=== PATIENT | female | born 1985 | race Caucasian/White ===

== ENCOUNTER 2017-01-24 09:01 | Inpatient (IN) | payer MEDICAID ==
[~2017-01-24] VITALS: Ht 160 cm; Wt 78.5 kg
[2017-01-24 10:09] LABS: Basophils # (auto) 0.1 uL; Basophils % (auto) 0.5 % (0.0-2.0); DEFINITIVE VIEW TRANSMISSION; Eosinophils # (auto) 0.1 uL; Eosinophils % (auto) 0.9 % (0.0-7.0); Hematocrit 38.8 % (36.0-46.0); Hemoglobin 12.4 g/dL (12.2-16.2); Lymphocytes # (auto) 2.2 uL; Lymphocytes % (auto) 21.2 % (10.0-50.0); Mean Corpuscular Hemoglobin 22.5 pg (28.0-32.0); Mean Corpuscular Volume 70.2 fL (80.0-100.0); Mean Platelet Volume 8.3 fL (7.4-10.4); Monocytes # (auto) 0.6 uL; Monocytes % (auto) 5.8 % (0.0-12.0); Neutrophils # (auto) 7.4 uL; Neutrophils % (auto) 71.6 % (37.0-80.0); Platelet Count (auto) 325 10^3/uL (140-450); Red Cell Distribution Width 15.4 % (11.6-16.0); White Blood Cell 10.4 10^3/uL (4.4-10.8)
[2017-01-24 10:26] LABS: Albumin 3.7 g/dL (3.4-5.0); BUN/Creatinine Ratio 13.8; Calcium 8.5 mg/dL (8.5-10.1); Potassium 3.9 mmol/L (3.5-5.1)
[2017-01-24] MEDS ORDERED: MORPHINE SULFATE 4 MG/ML SYRG IM ONE (11:15)
[2017-01-24] MEDS ORDERED: ONDANSETRON HCL 4 MG/2 ML VIAL IV ONE (11:15)
[2017-01-24] MEDS ORDERED: LABETALOL HCL 5 MG/ML 4ML SYRINGE IV ONE (11:15)
[2017-01-24] MEDS ORDERED: MORPHINE SULFATE 4 MG/ML SYRG IV ONE (11:30)
[2017-01-24 11:39] LABS: B-Type Natriuretic Peptide 959.61 pg/mL (0-100); Temperature: 23.9 C (20.0-25.0)
[2017-01-24] MEDS ORDERED: FUROSEMIDE 20 MG/2 ML VIAL IV ONE (11:45)
[2017-01-24 12:11] LABS: Urine Bilirubin Negative (Negative); Urine Color Yellow (Yellow); Urine Glucose Normal (Normal); Urine Ketone Negative (Negative); Urine Nitrite Negative (Negative); Urine RBC <1 /hpf (0 - 4); Urine Squamous Epithelial Cell FEW /hpf (<5); Urine Urobilinogen Normal (Negative); Urine pH 5.5 (5.0-8.0)
[2017-01-24 12:12] LABS: Urine Blood 1+ /uL (Negative)
[2017-01-24] MEDS ORDERED: CARVEDILOL 12.5 MG TAB PO ONE (14:45)
[2017-01-24] MEDS ORDERED: LISINOPRIL 10 MG TAB PO ONE (14:45)
[2017-01-24] MEDS ORDERED: PANTOPRAZOLE 40 MG TAB PO ONE (14:45)
[2017-01-24] MEDS ORDERED: POTASSIUM CHL 20 Meq TABLET PO ONE (14:45)
[2017-01-24] MEDS ORDERED: ASPirin 81 mg TAB PO ONE (14:45)
[2017-01-24] MEDS ORDERED: SPIRONOLACTONE 25 MG TAB PO ONE (14:45)
[2017-01-24] MEDS ORDERED: LISI2.5T47 PO (17:30)
[2017-01-24] MEDS ORDERED: SPIR25TA88 PO (17:30)
[2017-01-24] MEDS ORDERED: CARV25TA55 PO (17:30)
[2017-01-24] MEDS ORDERED: POTA1TAB4 PO (17:30)
[2017-01-24] MEDS ORDERED: FURO20TA PO (17:30)
[2017-01-24 22:00] VITALS: BP 163/85
[2017-01-24] MEDS: CARVEDILOL 12.5 MG TAB PO SCH (22:00)
[2017-01-25 05:00] VITALS: BP_SYST 109; BP_SYST 118; BP_DIAS 56; BP_DIAS 73
[2017-01-25 06:01] LABS: Basophils # (auto) 0.1 uL; Basophils % (auto) 0.5 % (0.0-2.0); DEFINITIVE VIEW TRANSMISSION; Eosinophils # (auto) 0.1 uL; Eosinophils % (auto) 1.2 % (0.0-7.0); Hematocrit 36.4 % (36.0-46.0); Hemoglobin 11.6 g/dL (12.2-16.2); Lymphocytes # (auto) 2.3 uL; Lymphocytes % (auto) 21.7 % (10.0-50.0); Mean Corpuscular Hemoglobin 22.4 pg (28.0-32.0); Mean Corpuscular Hgb Conc. 31.9 g/dL (32.0-36.0); Mean Corpuscular Volume 70.4 fL (80.0-100.0); Mean Platelet Volume 8.5 fL (7.4-10.4); Monocytes # (auto) 0.7 uL; Monocytes % (auto) 6.4 % (0.0-12.0); Neutrophils # (auto) 7.5 uL; Neutrophils % (auto) 70.2 % (37.0-80.0); Platelet Count (auto) 291 10^3/uL (140-450); Red Cell Distribution Width 16.1 % (11.6-16.0); White Blood Cell 10.7 10^3/uL (4.4-10.8)
[2017-01-25 06:28] LABS: Calcium 8.4 mg/dL (8.5-10.1); Magnesium 2.1 mg/dL (1.6-2.6); Potassium 4.5 mmol/L (3.5-5.1)
[2017-01-25 06:40] LABS: BUN/Creatinine Ratio 20.9
[2017-01-25] MEDS ORDERED: traMADol HCL 50 MG TAB PO ONE (07:00)
[2017-01-25 09:00] VITALS: BP 111/80
[2017-01-25] MEDS: LISINOPRIL 10 MG TAB PO SCH (09:49)
[2017-01-25] MEDS: CARVEDILOL 12.5 MG TAB PO SCH ×2 (09:49→21:48)
[2017-01-25] MEDS: POTASSIUM CHL 20 Meq TABLET PO SCH (09:49)
[2017-01-25] MEDS: SPIRONOLACTONE 25 MG TAB PO SCH (09:49)
[2017-01-25] MEDS: ASPirin 81 mg TAB PO SCH (09:50)
[2017-01-25] MEDS ORDERED: PANTOPRAZOLE 40 MG TAB PO SCH (10:00)
[2017-01-25] MEDS ORDERED: FUROSEMIDE 40 MG/4 ML VIAL IV SCH (10:00)
[2017-01-25 13:00] VITALS: BP 98/70
[2017-01-25] MEDS: traMADol HCL 50 MG TAB PO PRN (15:12)
[2017-01-25 16:02] LABS: Prothrombin Time 13.1 sec (9.37-12.3)
[2017-01-25 16:03] LABS: INR 1.21 (0.9-1.15)
[2017-01-25 16:49] VITALS: BP 95/52
[2017-01-25] MEDS ORDERED: MORPHINE SULF INJ 2 MG/ML SYRINGE 1ML IV ONE (19:00)
[2017-01-25] MEDS: PANTOPRAZOLE 40 MG TAB PO SCH (21:48)
[2017-01-25 22:00] VITALS: BP 96/68
[2017-01-26 05:30] VITALS: BP 113/85
[2017-01-26 06:03] LABS: Potassium 4.4 mmol/L (3.5-5.1)
[2017-01-26 06:07] LABS: Calcium 8.3 mg/dL (8.5-10.1)
[2017-01-26 06:14] LABS: B-Type Natriuretic Peptide 388.62 pg/mL (0-100); Temperature: 22.5 C (20.0-25.0)
[2017-01-26] MEDS: traMADol HCL 50 MG TAB PO PRN (08:29)
[2017-01-26] MEDS ORDERED: LIDOCAINE VISCOUS 2% 15ML UD ONE (08:59)
[2017-01-26] MEDS ORDERED: SODIUM CHLORIDE LOCK 10 ML ONE (08:59)
[2017-01-26 09:00] VITALS: BP 117/72
[2017-01-26] MEDS ORDERED: diphenhdrAMINE HCL 50 MG/1 ML VL ONE (09:00)
[2017-01-26] MEDS ORDERED: FUROSEMIDE 40 MG TAB PO SCH (10:00)
[2017-01-26] MEDS: CARVEDILOL 12.5 MG TAB PO SCH ×2 (10:00→12:54)
[2017-01-26] MEDS: LISINOPRIL 10 MG TAB PO SCH (10:00)
[2017-01-26] MEDS: MIDAZOLAM HCL 5 MG/ML-1ML VIAL ONE ×2 (11:37→11:41)
[2017-01-26] MEDS: fentaNYL CITRATE 100 MCG/2 ML VL ONE ×2 (11:37→11:41)
[2017-01-26] MEDS: POTASSIUM CHL 20 Meq TABLET PO SCH (12:53)
[2017-01-26] MEDS: ASPirin 81 mg TAB PO SCH (12:54)
[2017-01-26] MEDS: SPIRONOLACTONE 25 MG TAB PO SCH (12:54)
[2017-01-26] MEDS: PANTOPRAZOLE 40 MG TAB PO SCH (12:54)
[2017-01-26 13:00] VITALS: BP 104/68
== END 2017-01-26 15:26 | disposition home or self-care (01) | DRG 241 ==
LOC: ER 09:04 → OVERFLOW 09:05 → EAST 16:20 → WEST WING 18:25
PROVIDERS: ADMIT Internal Medicine; ATTEND Internal Medicine
PROC: 0DB68ZX Excision of Stomach, Via Natural or Artificial Opening Endoscopic, Diagnostic (ICD-10-PCS; principal; 2017-01-26 11:33)
DX: K25.9 Gastric ulcer, unspecified as acute or chronic, without hemorrhage or perforation (principal); I50.23 Acute on chronic systolic (congestive) heart failure; I42.0 Dilated cardiomyopathy; N30.00 Acute cystitis without hematuria; I11.0 Hypertensive heart disease with heart failure; F17.210 Nicotine dependence, cigarettes, uncomplicated; F15.10 Other stimulant abuse, uncomplicated; K29.70 Gastritis, unspecified, without bleeding; Z88.6 Allergy status to analgesic agent; Z88.5 Allergy status to narcotic agent
CPT/HCPCS: 36415; 43239; 51702; 71020; 74176; 80048; 80053; 80307; 81001; 81025; 83690; 83735; 83880; 84484; 84702; 85025; 85379; 85610; 93005; 93306; 94761; 96374; 96375; J2250; J2405; J3490

== ENCOUNTER 2019-08-10 19:57 | Emergency (ER) | payer MEDICAID ==
[~2019-08-10] VITALS: Ht 170.2 cm; Wt 68.0 kg
[~2019-08-10 19:57] MED LIST: CARV25TA55 PO; FURO1TAB33 PO; LISI2.5T47 PO; POTA1TAB4 PO; SPIR25TA88 PO
[2019-08-10] MEDS ORDERED: cloNIDine HCL 0.1 MG TAB PO ONE (20:15)
[2019-08-10 20:33] VITALS: BP 138/104
[2019-08-10] MEDS ORDERED: ALBUTEROL SULF 2.5 MG/0.5ML(0.5%) NEB SOLN NEB STA (20:33)
[2019-08-10] MEDS ORDERED: IPRATROPIUM BROM 0.5 MG/2.5ML INH SOL NEB ONE (20:45)
[2019-08-10 22:00] LABS: Basophils # (auto) 0.1 uL; Basophils % (auto) 0.8 % (0.0-2.0); Eosinophils # (auto) 0 uL; Eosinophils % (auto) 0.2 % (0.0-7.0); Hematocrit 45.7 % (36.0-46.0); Lymphocytes # (auto) 1.2 uL; Lymphocytes % (auto) 15.5 % (10.0-50.0); Mean Corpuscular Hemoglobin 27.3 pg (28.0-32.0); Mean Corpuscular Hgb Conc. 32.8 g/dL (32.0-36.0); Mean Corpuscular Volume 83.2 fL (80.0-100.0); Monocytes # (auto) 0.6 uL; Neutrophils # (auto) 5.6 uL; Neutrophils % (auto) 75.5 % (37.0-80.0); Nucleated Red Blood Cells % 0.1 %; Platelet Count (auto) 187 10^3/uL (140-450); Red Blood Cells 5.49 10^6/uL (4.0-5.20); Red Cell Distribution Width 17.1 % (11.8-14.3); White Blood Cell 7.5 10^3/uL (4.4-10.8)
[2019-08-10 22:14] LABS: Albumin 3.7 g/dL (3.4-5.0); Calcium 8.3 mg/dL (8.5-10.1); Potassium 3.8 mmol/L (3.5-5.1)
[2019-08-10 22:17] LABS: BUN/Creatinine Ratio 10.5; Bilirubin, Total 1.3 mg/dL (0.2-1.0); Total Protein 7.3 g/dL (6.4-8.2)
== END 2019-08-11 04:47 | disposition left against medical advice (07) ==
LOC: EDUNIT# 19:57 → ER 20:00
DX: R53.1 Weakness (principal); Z53.21 Procedure and treatment not carried out due to patient leaving prior to being seen by health care provider
CPT/HCPCS: 36415; 71045; 80053; 85025; J7611; J7644

== ENCOUNTER → 2021-09-07 | Emergency (ER) | payer MEDICAID ==
[~2021-09-07] MED LIST changes: +SPIR25TA PO; -SPIR25TA88 PO
== END | disposition left against medical advice (07) ==
LOC: ER 00:45
DX: R07.9 Chest pain, unspecified (principal); Z53.21 Procedure and treatment not carried out due to patient leaving prior to being seen by health care provider

== ENCOUNTER 2022-04-01 05:03 | Inpatient (IN) | payer MEDICAID ==
[~2022-04-01] VITALS: Ht 160 cm; Wt 86.0 kg
[2022-04-01 06:09] LABS: Urine WBC None Seen /hpf (0 - 5)
[2022-04-01] MEDS ORDERED: FUROSEMIDE 40 MG/4 ML VIAL IV ONE (06:15)
[2022-04-01 06:44] LABS: Alcohol, Urine < 3.0 mg/dL (0-10); Amphetamine Screen, Urine NEGATIVE (NEGATIVE); Barbiturate Scree,Urine NEGATIVE (NEGATIVE); Benzodiazephine Screen, Urine NEGATIVE (NEGATIVE); Cannabinoid Screen, Urine NEGATIVE (NEGATIVE); Cocaine Screen, Urine NEGATIVE (NEGATIVE); Opiate Scree,Urine NEGATIVE (NEGATIVE); Phencyclidine Screen, Urine NEGATIVE (NEGATIVE)
[2022-04-01] MEDS ORDERED: ONDANSETRON HCL 4 MG/2 ML VIAL IV ONE ×2 (06:45→13:45)
[2022-04-01] MEDS ORDERED: MORPHINE SULFATE 4 MG/ML SYR/VIAL IV ONE ×2 (06:45→13:45)
[2022-04-01 07:52] LABS: Albumin 3.6 g/dL (3.4-5.0); Potassium 4.2 mmol/L (3.5-5.1)
[2022-04-01 07:55] LABS: BUN/Creatinine Ratio 17.3; Bilirubin, Total 3.6 mg/dL (0.2-1.0); Total Protein 7.8 g/dL (6.4-8.2)
[2022-04-01 09:19] LABS: Basophils # (auto) 0.1 10 ^3/uL (0-0.2); Basophils % (auto) 1.1 % (0.0-2.0); Eosinophils # (auto) 0 10 ^3/uL (0-0.8); Eosinophils % (auto) 0.6 % (0.0-7.0); Hematocrit 45.8 % (36.0-46.0); Lymphocytes # (auto) 1.6 10 ^3/uL (0.4-5.4); Lymphocytes % (auto) 20.8 % (10.0-50.0); Mean Corpuscular Hemoglobin 23.5 pg (28.0-32.0); Mean Corpuscular Hgb Conc. 30.5 g/dL (32.0-36.0); Monocytes # (auto) 0.7 10 ^3/uL (0-1.3); Neutrophils # (auto) 5.1 10 ^3/uL (1.6-8.6); Neutrophils % (auto) 67.5 % (37.0-80.0); Nucleated Red Blood Cells % 0.2 %; Red Blood Cells 5.95 10^6/uL (4.0-5.20); Red Cell Distribution Width 21.2 % (11.8-14.3); White Blood Cell 7.5 10^3/uL (4.4-10.8)
[2022-04-01 09:36] LABS: Urine Blood Negative /uL (Negative)
[2022-04-01 10:59] LABS: Urine Bacteria NONE SEEN /hpf (None Seen)
[2022-04-01] MEDS ORDERED: CLINDAMYCIN 600MG IV 50 ML IV ONE (11:15)
[2022-04-01] MEDS ORDERED: IOHEXOL 350 MG/ML 100ML IJ ONE (12:40)
[2022-04-01] MEDS ORDERED: MORPHINE SULFATE INJ 2 MG/ml SYRG IV PRN (14:45)
[2022-04-01] MEDS ORDERED: DOCUSATE SOD 100 MG CAP PO PRN (14:45)
[2022-04-01] MEDS ORDERED: ONDANSETRON HCL 4 MG/2 ML VIAL IV PRN (14:45)
[2022-04-01] MEDS ORDERED: NITROGLYCERIN 0.4 MG SL TAB SL PRN (14:45)
[2022-04-01] MEDS ORDERED: ACETAMINOPHEN 325 MG TAB PO PRN (14:45)
[2022-04-01] MEDS: HEPARIN SODIUM (PORCINE) 5000 UNITS/ML 1ML VIAL SC SCH ×2 (15:21→22:04)
[2022-04-01] MEDS: FUROSEMIDE 40 MG/4 ML VIAL IV SCH (18:13)
[2022-04-01] MEDS: HYDROmorphone HCL 2 MG/ML VL/or syr IV PRN (20:32)
[2022-04-01] MEDS: DOXYCYCLINE 100 MG TAB/CAP PO SCH (22:23)
[2022-04-01 22:24] VITALS: BP 117/90
[2022-04-01] MEDS: CARVEDILOL 12.5 MG TAB PO SCH (22:24)
[2022-04-01] MEDS: SODIUM CHLOR 0.9% PF (SALINE LOCK) 10ML VIAL/SYR IV SCH (22:24)
[2022-04-02] VITALS (10 sets, daily range): BP systolic 77–98; BP diastolic 36–56
[2022-04-02] MEDS: FUROSEMIDE 40 MG/4 ML VIAL IV SCH ×2 (04:10→17:21)
[2022-04-02] MEDS ORDERED: SACU1TAB PO (04:22)
[2022-04-02] MEDS ORDERED: FURO40TA4 PO (04:22)
[2022-04-02] MEDS: SODIUM CHLOR 0.9% PF (SALINE LOCK) 10ML VIAL/SYR IV SCH ×3 (05:51→21:47)
[2022-04-02] MEDS: HEPARIN SODIUM (PORCINE) 5000 UNITS/ML 1ML VIAL SC SCH ×3 (06:25→22:28)
[2022-04-02] MEDS: DOXYCYCLINE 100 MG TAB/CAP PO SCH (07:57)
[2022-04-02] MEDS: HYDROmorphone HCL 2 MG/ML VL/or syr IV PRN (08:01)
[2022-04-02] MEDS: CARVEDILOL 12.5 MG TAB PO SCH (08:02)
[2022-04-02] MEDS ORDERED: DAPAGLIFLOZIN 5 MG TAB PO SCH (10:00)
[2022-04-02] MEDS ORDERED: LISINOPRIL 5 MG TAB PO SCH (10:00)
[2022-04-02] MEDS ORDERED: SPIRONOLACTONE 25 MG TAB PO SCH (10:00)
[2022-04-02] MEDS ORDERED: ALBUMIN 25% 100 ML IV ONE (11:45)
[2022-04-02] MEDS ORDERED: MILRINONE 20MG/100ML 100 ML IV SCH (15:00)
[2022-04-02] MEDS ORDERED: VANCOMYCIN PER PHARMACY 0 MG IV SCH (15:00)
[2022-04-02] MEDS ORDERED: VANCOMYCIN 1GM/250ML 250 ML IV ONE (15:45)
[2022-04-02] MEDS ORDERED: SODIUM CHLORIDE 0.9% 500 ML IV ONE (19:45)
[2022-04-02] MEDS ORDERED: MIDODRINE HCL 10 MG TAB PO ONE (19:45)
[2022-04-02] MEDS ORDERED: PIPERACILLIN-TAZO 4.5GM 100 ML IV SCH (22:00)
[2022-04-02] MEDS ORDERED: HYDROcodone-ACET 5/325MG TAB PO PRN (22:45)
[2022-04-03] MEDS ORDERED: VANCOMYCIN 1GM/250ML 250 ML IV SCH (05:00)
== END 2022-04-02 23:18 | disposition left against medical advice (07) | DRG 194 ==
LOC: ER 05:03 → TELE 14:38 → TELE-WESTW 21:20
PROVIDERS: ADMIT Internal Medicine; ATTEND Internal Medicine
DX: I11.0 Hypertensive heart disease with heart failure (principal); L03.115 Cellulitis of right lower limb; I42.0 Dilated cardiomyopathy; I50.21 Acute systolic (congestive) heart failure; D64.9 Anemia, unspecified; F17.210 Nicotine dependence, cigarettes, uncomplicated; L03.116 Cellulitis of left lower limb; I36.1 Nonrheumatic tricuspid (valve) insufficiency; I34.0 Nonrheumatic mitral (valve) insufficiency; Z53.29 Procedure and treatment not carried out because of patient's decision for other reasons; Z20.822 Contact with and (suspected) exposure to COVID-19; Z88.1 Allergy status to other antibiotic agents; Z79.84 Long term (current) use of oral hypoglycemic drugs; Z88.5 Allergy status to narcotic agent; Z79.899 Other long term (current) drug therapy; Z90.49 Acquired absence of other specified parts of digestive tract; Z82.49 Family history of ischemic heart disease and other diseases of the circulatory system; Z83.3 Family history of diabetes mellitus
CPT/HCPCS: 36415; 71045; 73706; 80053; 80307; 81001; 81025; 82962; 83735; 83880; 84484; 85025; 85652; 86141; 93005; 93306; 93925; 93970; 96365; 96366; 96375; 96376; G0378; J2405; J2543; J3490; P9047